=== PATIENT | female | born 1980 | race Asian ===

== ENCOUNTER → 2016-11-27 | Outpatient (CLI) | payer OTHER | LOC: LAB 14:41 | DX: Z00.00 Encounter for general adult medical examination without abnormal findings (principal) ==

== ENCOUNTER → 2017-05-07 | Outpatient (CLI) | payer OTHER | LOC: RAD 14:55 | DX: M54.10 Radiculopathy, site unspecified (principal); M25.561 Pain in right knee; I83.91 Asymptomatic varicose veins of right lower extremity ==

== ENCOUNTER → 2017-12-09 | Outpatient (CLI) | payer OTHER ==
[2017-12-09 10:16] LABS: ALBUMIN 4.6 g/dL (3.5-5.0); CALCIUM 9.2 mg/dL (8.4-10.2); POTASSIUM 4.1 mmol/L (3.6-5.0); TOTAL BILIRUBIN 0.9 mg/dL (0.2-1.3); TOTAL PROTEIN 8.1 g/dL (6.3-8.2)
[2017-12-09 10:32] LABS: HEMATOCRIT 40.3 % (37.0-47.0); HEMOGLOBIN 14.4 g/dL (12.5-16.0); MEAN CELL VOLUME 91 fl (78-100); MEAN CORPUSCULAR HEMOGLOBIN 32 pg (27-31); MEAN CORPUSCULAR HGB CONC 36 g/dL (33-37); MEAN PLATELET VOLUME 9.6 fl (7.4-10.4); PLATELET COUNT 270 K/mm3 (130-400); RED BLOOD COUNT 4.44 M/mm3 (4.10-5.30); RED CELL DISTRIBUTION WIDTH 14.4 % (11.5-14.5); WHITE BLOOD COUNT 6.5 K/mm3 (4.8-10.8)
[2017-12-09 12:15] LABS: LYMPHOCYTE 21 % (20-51); MONOCYTE 2 % (3-10); NEUTROPHILS 75 % (42-75)
== END ==
LOC: LAB 09:30
PROVIDERS: Nurse Practitioner Family
DX: R42 Dizziness and giddiness (principal)